=== PATIENT | female | born 1985 ===

== ENCOUNTER 2017-09-23 17:58 | Inpatient (IN) | payer OTHER ==
[~2017-09-23] VITALS: Ht 160 cm; Wt 70.8 kg
[2017-09-29] MEDS ORDERED: PRENATAL TABLE1 EACH PO (22:02)
[2017-09-29] MEDS ORDERED: HEMATINIC-FOLI1 EACH PO (22:04)
== END 2017-10-02 11:50 | DRG 775 ==
LOC: LDR 09-29 22:51 → OB/GYN 09-29 22:51 → LDR 09-30 13:15 → OB/GYN 10-02 11:50 → LDR 10-14 13:15
PROC: 4A1HXCZ Monitoring of Products of Conception, Cardiac Rate, External Approach (ICD-10-PCS; 2017-09-29)
PROC: 0UQMXZZ Repair Vulva, External Approach (ICD-10-PCS; principal; 2017-09-30)
PROC: 10E0XZZ Delivery of Products of Conception, External Approach (ICD-10-PCS; 2017-09-30)
PROC: 4A033R1 Measurement of Arterial Saturation, Peripheral, Percutaneous Approach (ICD-10-PCS; 2017-09-30)
DX: O71.82 Other specified trauma to perineum and vulva (principal); O69.81X0 Labor and delivery complicated by cord around neck, without compression, not applicable or unspecified; Z3A.37 37 weeks gestation of pregnancy; Z37.0 Single live birth

== ENCOUNTER 2017-09-29 21:38 | Outpatient (CLI) | payer OTHER ==
[2017-09-29] MEDS ORDERED: PRENATAL TABLE1 EACH PO (22:02)
[2017-09-29] MEDS ORDERED: HEMATINIC-FOLI1 EACH PO (22:04)
== END 2017-09-30 07:11 | disposition still patient (30) ==
LOC: OBS/DEL 21:38
DX: O47.1 False labor at or after 37 completed weeks of gestation (principal); Z34.83 Encounter for supervision of other normal pregnancy, third trimester